=== PATIENT | male | born 1970 | race Two or more races ===

== ENCOUNTER 2019-09-09 21:36 | Emergency (ER) | payer OTHER ==
[~2019-09-09] VITALS: Ht 182.9 cm; Wt 79.4 kg
[2019-09-09] MEDS ORDERED: IV NS 0.9% 1,000 ML BAG IV ONE (22:00)
[2019-09-09] MEDS ORDERED: ONDANSETRON HCL/PF 4 MG/2 ML VIAL IVP ONE (22:00)
--- NOTE | 2019-09-09 22:00 | NUR ---
BETTY FROM HOME FOR C/O WEAKNESS AND BEING PALE. PT WAS FOUND W/ LOW BP ON THE FIELD AND BROUGHT IN FOR EVALUATION OF LOW BP. PT WAS PLACED ON A MONITOR . WILL CONT TO MONITOR ,
--- NOTE | 2019-09-09 22:33 | NUR ---
PT INITIALLY REFUSED BLOOD DRAW. SPOKE TO THE PT AND THE FAMILY AT THE BED SIDE. PT AGREED TO PROCEDD W/ THE BLOOD TEST. LAP CHECKER MADE AWARE
--- NOTE | 2019-09-09 23:12 | NUR ---
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 PT REFUSED BLOOD DRAW AND STATED WILLING TO LEAVE AMA. DR. RUFF MADE AWARE .
--- NOTE | 2019-09-09 23:24 | NUR ---
IV removed. Catheter intact and site benign. Pressure and 4x4 applied to site. No bleeding noted. pt was d/C'd home AMA and picked up by dtr.
--- NOTE | 2019-09-09 23:24 | NUR ---
Patient does not wish to proceed with medical care recommended by Dr. Joyce. Patient given information related to possible complications, up to and including , which could occur as a result of leaving the hospital at this time. Patient verbalizes understanding of risks involved due to leaving against medical advice. Patient has signed AMA form.
[2019-09-09 23:26] VITALS: BP 94/56
== END 2019-09-09 23:27 | disposition left against medical advice (07) ==
LOC: ER 21:39
DX: R11.2 Nausea with vomiting, unspecified (principal); R53.1 Weakness; I95.9 Hypotension, unspecified
CPT/HCPCS: 71045; 93005; 96360; 99283; J7030